=== PATIENT | male | born 1970 | race Caucasian/White ===

== ENCOUNTER 2016-06-06 18:34 | Inpatient (IN) | payer MEDICARE, OTHER ==
--- NOTE | ~2016-06-06 | PA ---
Unit #: [id number] #: [id number] Patient: JODI MILLER [id number] [facility] [address] [place] [address] [id number] I MR#: [id number] NAME: JODI MILLER ROOM: [facility] Age: 46 Sex: M Admission Date: 06/06/2016 : 1970 Date of Assessment: 06/07/2016 Attending Physician: Mejia Bartlett M.D. Admitting Physician: Mejia Bartlett M.D. Primary Care Physician: Primary Care Physician No PSYCHIATRIC ASSESSMENT IDENTIFYING INFORMATION The patient is a 46-year-old white male admitted to the [address] [place] [address] with a history of recurrence of heroin and alcohol. CHIEF COMPLAINT None given. INFORMANT Patient, reliability is fair. HISTORY OF PRESENT ILLNESS The patient is a 46-year-old white male admitted to the [address] [place] [address] with ongoing abuse of alcohol and intravenous heroin. He was last admitted to this facility in late December of last year but maintained sobriety for no significant period of time. The patient was reporting positive suicidal ideation at the time of admission with plan to overdose or using a "knife to cut himself." He states that he did attempt to overdose from heroin 2 weeks ago but did not succumb because "the stuff wasn't that good." For more complete history of present illness, please refer to previously dictated notes. PAST PSYCHIATRIC HISTORY Reviewed, no changes. PAST MEDICAL HISTORY Reviewed, no changes. MEDICATIONS 1. Gabapentin. 2. Seroquel. ALLERGIES None reported. FAMILY HISTORY Reviewed, no changes. SOCIAL HISTORY Reviewed, no changes. MENTAL STATUS EXAMINATION Examination at this time reveals the patient to be a well-developed well-nourished white male appearing stated age. He is in no apparent Unit #: [id number] #: [id number] Patient: JODI MILLER physical distress at the time of examination. He is awake, alert, and oriented in all spheres. His mood is mildly dysphoric, his affect blunted. Speech is generally well coherent. There are no gross deficits in memory or cognition noted. Intelligence is judged to be in the average range based on fund of knowledge. The patient is cooperative the interview. He is currently endorsing positive suicidal ideation. He denies homicidal ideation. He denies any psychotic symptoms. Her judgment and insight appear to be reasonably intact. ASSETS AND LIABILITIES The patient's assets are to be assessed. Liabilities: Lack of resources, ongoing substance use. DIAGNOSTIC IMPRESSION 1. Alcohol use disorder. 2. Opioid use disorder. 3. Mood disorder unspecified. TREATMENT PLAN The patient remains hospitalized for safety and stabilization. We will continue previously prescribed Seroquel. The patient has been prescribed high-dose Neurontin outside the hospital, but given concerns about potential abuse, this medication will be held, but the patient will continue on p.r.n. Neurontin as per opioid detox protocol. Suicide precautions remain in place. ESTIMATED LENGTH OF STAY 3 to 5 days. Followup will take place through the auspices of community mental health resources. The patient will be referred to the chemical dependence intensive outpatient program and will be a candidate for residential chemical dependence treatment. Dictated by... Mejia Bartlett M.D. CB/jaime TD: 06/07/2016 14:11 JOB #: [id number] PSYCHIATRIC ASSESSMENT Page 1 of 1 X Mejia Bartlett MD X PSYCHIATRIC ASSESSMENT
--- NOTE | ~2016-06-06 | PN ---
Unit #: [id number] #: [id number] Patient: JODI MILLER [id number] [facility] [address] [place] [address] [id number] MR#: [id number] NAME: JODI MILLER ROOM: [facility] [place] Age: 46 Sex: M Admission Date: 06/06/2016 : 1970 Attending Physician: Mejia Bartlett M.D. Admitting Physician: Mejia Bartlett M.D. Primary Care Physician: Primary Care Physician Holly DAVIS PROGRESS NOTES DATE 06/08/2016 DISCUSSION The patient is abed today continuing to complain of significant discomfort from substance withdrawal. He requests "something for my depression." I have explained to the patient that he is already taking an adequate dose of Seroquel to address mood instability, and that his current symptoms are probably more related to his current state of withdrawal. Dictated by... Mejia Bartlett M.D. CB/bzg TD: 06/08/2016 14:40 JOB #: [id number] SUSAN PROGRESS NOTES Page 1 of 1 X Mejia Bartlett MD PROGRESS NOTE
--- NOTE | ~2016-06-06 | DS ---
Unit #: [id number] #: [id number] Patient: JODI MILLER [id number] [facility] [address] [place] [address] [id number] I MR#: [id number] NAME: JODI MILLER ROOM: [facility] Age: 46 Sex: M Admission Date: 06/06/2016 : 1970 Discharge Date: 06/09/2016 Attending Physician: Mejia Bartlett M.D. DISCHARGE SUMMARY REASON FOR ADMISSION The patient is a 46-year-old white male, admitted to the [facility] with history of polysubstance dependence including abuse of alcohol and heroin. HOSPITAL COURSE The patient was admitted to the [address] [place] [address] unit and placed on suicide precautions. He was placed on routine detoxification protocol to cover both alcohol and opioids. His stay in the hospital was an uneventful one. He was continued on previously prescribed Seroquel 400 mg at h.s. By 06/09/2016, the patient requested discharge from the hospital. At that time, his detox was complete and he voiced no suicidal or homicidal ideation. Discharge was ordered. FINAL DIAGNOSES Opioid use disorder; alcohol use disorder; sedative-hypnotic use disorder; mood disorder, unspecified. DISPOSITION ON DISCHARGE The patient was discharged on the following medications; Seroquel 400 mg at h.s. for mood stabilization. No dietary or physical restrictions were placed on the patient at the time of discharge. FOLLOWUP Followup will take place through the auspices of community mental health resources and the [place] intensive outpatient program. PROGNOSIS Considered fair. Dictated by... Mejia Bartlett M.D. FRANCINE/ani TD: 06/10/2016 06:22 JOB #: [id number] Unit #: [id number] #: [id number] Patient: JODI MILLER DISCHARGE SUMMARY Page 1 of 1 X Mejia Bartlett MD X DISCHARGE SUMMARY
--- NOTE | ~2016-06-06 | HP ---
Unit #: [id number] #: [id number] Patient: JODI MILLER [id number] [place] [address] [id number] I MR#: [id number] NAME: JODI MILLER ROOM: [facility] Age: 46 Sex: M Admission Date: 06/06/2016 : 1970 Attending Physician: Mejia Bartlett M.D. Admitting Physician: Mejia Bartlett M.D. Primary Care Physician: Primary Care Physician No HISTORY AND PHYSICAL HISTORY OF PRESENT ILLNESS Jodi is a 46 year old admitted to [address] [place] [address] because of his continued drug use. He shoots heroin. PAST MEDICAL HISTORY 1. Long history of poly illicit substance abuse to include IV heroin. 2. History of withdrawal seizures. 3. Eczema. 4. Hyperlipidemia. 5. History of kidney stones. 6. Rheumatoid arthritis. PAST SURGICAL HISTORY 1. Bilateral hips replaced. 2. Basket retrieval of kidney stones. 3. Appendectomy. ALLERGIES No known drug allergies. SOCIAL HISTORY Smokes less than one pack per day. Drinks alcohol frequently. Has a long history of poly-illicit substance abuse to include IV heroin and benzodiazepines. FAMILY HISTORY Medically noncontributory. REVIEW OF SYSTEMS CONSTITUTIONAL: No fever or chills. HEENT: Denies any sore throat, ear pain or runny nose. CARDIOVASCULAR: Denies chest pain, irregular heart rhythm or palpitations. CHEST: Denies shortness of breath or cough. No hemoptysis. GASTROINTESTINAL: Denies nausea, vomiting, diarrhea or chronic constipation. ENDOCRINE: Denies history of increased thirst or urination. No recent significant weight loss or gain. GENITOURINARY: Denies dysuria, frequency, or hematuria. SKIN: Denies any rashes. HEMATOLOGIC: Denies history of increased bleeding or bruising. MUSCULOSKELETAL: Denies any hot, swollen joints. No generalized muscle pain. NEUROLOGIC: Denies problems with vision or speech. No frequent, severe Unit #: [id number] #: [id number] Patient: JODI MILLER headaches. No numbness, tingling or weakness in any extremities. Denies loss of bladder or bowel control. CURRENT MEDICATIONS Detox protocol PHYSICAL EXAMINATION GENERAL: Alert, well-nourished, in no apparent distress. VITAL SIGNS: Blood pressure 130/66, heart rate 80, respirations 16, temperature 98.6. WEIGHT: 161 pounds. HEIGHT: 6'2". SKIN: Warm and dry without rash or lesion. HEENT: Normocephalic. TMs not viewed. Oral and nasal passages clear. Conjunctivae clear. Pupils equal, round and reactive to light and accommodation. Extraocular movements intact. NECK: Supple without lymphadenopathy or thyromegaly. HEART: Regular rate and rhythm without murmur. LUNGS: Clear. ABDOMEN: Soft, nontender. : Not done. EXTREMITIES: No evidence of cyanosis, clubbing or edema. Moves all extremities without focal deficit. NEUROLOGICAL: Grossly within normal limits. Cranial Nerves: II: Visual oscar are intact. III, IV AND : Extraocular movements are intact. Pupils are equal, round and reactive to light. V: Facial sensation is grossly normal. VII: Facial movements and expression are normal. VIII: Auditory acuity grossly intact. IX, X: Uvula is midline. Phonation is normal. XI: Patient shrugs shoulders and turns head normally. XII: Tongue protrudes in the midline. Sensory and Motor Function: Sensory and motor sensation is grossly normal. Motor: moves all extremities well. Coordination: Gait is normal. Deep Tendon Reflexes: Intact. IMPRESSION Psychiatric admission RECOMMENDATIONS PSYCHIATRIC: Per psychiatrist. MEDICAL: I see no contraindications to participating in facility's activities. MEDICAL PROGNOSIS Good. MEDICAL CONDITION Stable. Dictated by... Anamaria Mart P.A.-C. for Adelaida Kirby M.D. Unit #: [id number] #: [id number] Patient: JODI MILLER KAY/ollie TD: 06/07/2016 21:30 JOB #: [id number] HISTORY AND PHYSICAL Page 1 of 1 X Anamaria Mart X HISTORY AND PHYSICAL
[~2016-06-06 18:34] MED LIST: ACETAMINOPHEN PO; ACETAMINOPHEN325 MG PO; ALPRAZOLAM; ALPRAZOLAM PO; AMBIEN PO; AMBIEN10 MG; AUGMENTIN PO; CIPRO PO; DEMEROL PO; DIOVAN80 M1 PO; FLEXERIL PO; HYDROCODON-ACE1 EAC7 PO; HYDROCODON-ACE1 EAC9 PO; KEPPRA500 M2 PO; KLONOPIN0.5 MG PO; KLONOPIN2 MG; LAMICTAL PO; LEVAQUIN PO; MEDROL PO; MEDROL4 MG/DOSE- PO; MOBIC15 MG PO; NEURONTIN300 MG PO; PERCOCET10 PO; PRILOSEC; PROTONIX PO; ROBITUSSIN ALL118 ML PO; ROXICODONE15 MG; SEROQUEL400 MG PO; ULTRAM PO; VISTARIL PO; WELLBUTRIN SR150 MG PO; ZANAFLEX PO; ZANAFLEX4 M1; ZOCOR; ZOFRAN ODT4 MG PO; ZOLOFT
[2016-06-07 12:51] LABS: URINE APPEARANCE CLEAR; URINE BILIRUBIN NEG (NEG); URINE BLOOD TRACE (NEG); URINE COLOR YELLOW; URINE GLUCOSE NEG (NEG); URINE KETONE NEG (NEG); URINE LEUKOCYTE ESTERASE NEG (NEG); URINE NITRATE NEG (NEG); URINE PROTEIN NEG (NEG); URINE SPECIFIC GRAVITY 1.004 (1.003-1.035); URINE UROBILINOGEN 0.2 MG/DL (NEG)
[2016-06-07 12:53] LABS: URBCS1 AUWI 0-2 /[HPF] (0-2); URINE BACTERIA AUWI NEG (NEGATIVE); URINE SQUAMOUS EPITHELIAL CELL NONE SEEN /[HPF]; UWBCS1 AUWI 0-2 (0-5)
[2016-06-07 13:24] LABS: AMPHETAMINE NEG (NEG); BARBITURATES NEG (NEG); BENZODIAZEPINES NEG (NEG); COCAINE NEG (NEG); MARIJUANA NEG (NEG); OPIATES POS (NEG); TRICYCLIC ANTIDEPRESSANTS NEG (NEG); U METHADONE NEG (NEG)
== END 2016-06-09 16:05 | disposition home or self-care (01) | DRG 897 ==
LOC: P2S 18:34
PROVIDERS: Specialist
PROC: HZ2ZZZZ Detoxification Services for Substance Abuse Treatment (ICD-10-PCS; principal; 2016-06-06)
DX: F11.23 Opioid dependence with withdrawal (principal); F13.20 Sedative, hypnotic or anxiolytic dependence, uncomplicated; F10.20 Alcohol dependence, uncomplicated; F39 Unspecified mood [affective] disorder
CPT/HCPCS: 80307; 81003

== ENCOUNTER 2016-10-15 12:20 | Emergency (ER) | payer MEDICARE, OTHER ==
[~2016-10-15] VITALS: Ht 188 cm; Wt 72.6 kg
[2016-10-15 13:59] LABS: BASOPHIL% 0.4 % (0-2.5); EOSINOPHIL% 0.3 % (0.0-7.0); HEMATOCRIT 47.8 % (38.0-50.0); HEMOGLOBIN 16.3 gm/dL (13.0-16.0); LYMPHOCYTE# 2.1 X10e3 (1.0-3.5); LYMPHOCYTE% 22.3 % (17.0-45.0); MEAN CELL VOLUME 83.2 FL (83-96); MEAN CORPUSCULAR HEMOGLOBIN 28.3 PG (28-34); MEAN PLATELET VOLUME 7.2 FL (6.5-11.5); MONOCYTE# 0.4 X10e3 (0-1.0); MONOCYTE% 4.7 % (3.0-12.0); NEUTROPHIL# 6.7 X10e3 (1.5-7.1); NEUTROPHIL% 72.3 % (40-75); PLATELET COUNT 246 X10e3 (140-420); RED BLOOD COUNT 5.75 X10e (3.90-5.60); RED CELL DISTRIBUTION WIDTH 17.7 % (11.0-15.5); WHITE BLOOD COUNT 9.3 X10e3 (4.0-10.5)
[2016-10-15 14:01] LABS: DIFF IND NO
[2016-10-15 14:17] LABS: ALBUMIN SERUM 4.9 g/dL (3.5-5.0); ALKALINE PHOSPHATASE 104 U/L (32-92); ALT (SGPT) 48 U/L (10-40); AST (SGOT) 55 U/L (10-42); BILIRUBIN, DIRECT 0.3 mg/dL (0.0-0.2); BILIRUBIN,INDIRECT 1.3 mg/dL (0.0-0.9); BILIRUBIN,TOTAL 1.6 mg/dL (0.2-2.0); BLOOD UREA NITROGEN 34 mg/dL (9-23); CALCIUM SERUM 10.2 mg/dL (8.4-10.2); CARBON DIOXIDE 23 mmol/L (22-31); CHLORIDE 105 mmol/L (100-111); CREATININE SERUM 1.1 mg/dL (0.6-1.4); GLOM FILT RATE Estimated 80.7 mL/min (>60); GLUCOSE FASTING 96 mg/dL (70-110); POTASSIUM 4.2 mmol/L (3.5-5.1); PROTEIN TOTAL SERUM 8.9 g/dL (6.0-8.3); SALICYLATE <4.0 mg/dL; SODIUM 140 mmol/L (135-145)
[2016-10-15 14:33] LABS: ACETAMINOPHEN <10 ug/mL; ALCOHOL BLOOD <5 mg/dL (0)
[2016-10-15 14:55] LABS: AMPHETAMINE NEG (NEG); BARBITURATES NEG (NEG); BENZODIAZEPINES NEG (NEG); COCAINE NEG (NEG); MARIJUANA POS (NEG); OPIATES POS (NEG); TRICYCLIC ANTIDEPRESSANTS POS (NEG); U METHADONE NEG (NEG)
== END 2016-10-15 16:46 | disposition home or self-care (01) ==
LOC: SED 12:20
PROVIDERS: Emergency Medicine
DX: F32.9 Major depressive disorder, single episode, unspecified (principal); F11.10 Opioid abuse, uncomplicated; K75.9 Inflammatory liver disease, unspecified; F17.210 Nicotine dependence, cigarettes, uncomplicated
CPT/HCPCS: 36415; 80048; 80076; 80307; 85025; 96374; 96375; 99285; G0480; J2405; J3411; J3475

== ENCOUNTER 2016-10-26 14:09 | Inpatient (IN) | payer MEDICARE, OTHER ==
[~2016-10-26] VITALS: Ht 188 cm; Wt 74.8 kg
--- NOTE | ~2016-10-26 | PN ---
Unit #: [id number] #: [id number] Patient: JODI MILLER [id number] [facility] [address] [place] [address] [id number] I MR#: [id number] NAME: JODI MILLER ROOM: [facility] Age: 46 Sex: M Admission Date: 10/26/2016 : 1970 Attending Physician: Mejia Bartlett M.D. Admitting Physician: Mejia Bartlett M.D. Primary Care Physician: Primary Care Physician Holly DAVIS PROGRESS NOTES DATE 10/28/2016 DISCUSSION The patient is abed today and is gently but firmly confronted by this physician regarding his failure to attend the therapeutic activity on the unit. The patient states he "does not know what to do." I have suggested to the patient that attendance in groups may be a way to begin working towards maintenance of sobriety to which the patient responds by rolling over and going back to sleep. Dictated by... Mejia Bartlett M.D. CB/bzg TD: 10/28/2016 12:48 JOB #: [id number] SUSAN PROGRESS NOTES Page 1 of 1 X Mejia Bartlett MD PROGRESS NOTE
--- NOTE | ~2016-10-26 | PN ---
Unit #: [id number] #: [id number] Patient: JODI MILLER [id number] [facility] [address] [place] [address] [id number] I MR#: [id number] NAME: JODI MILLER ROOM: [facility] Age: 46 Sex: M Admission Date: 10/26/2016 : 1970 Attending Physician: Mejia Bartlett M.D. Admitting Physician: Mejia Bartlett M.D. Primary Care Physician: Primary Care Physician Holly DAVIS PROGRESS NOTES DATE 10/30/2016 DISCUSSION The patient remains seclusive to room and has not attended a single therapeutic activity nor has he made any effort towards arranging post discharge disposition per his own admission. I firmly confronted the patient today regarding his failure to attend on-grounds activities and have instructed him that he will need to have some sort of disposition plan in place in the next day as I plan a.m. discharge. Dictated by... Mejia Bartlett M.D. CB/ollie TD: 10/30/2016 21:36 JOB #: [id number] SUSAN RAZO NOTES Page 1 of 1 X Mejia Bartlett MD PROGRESS NOTE
--- NOTE | ~2016-10-26 | PA ---
Unit #: [id number] #: [id number] Patient: JODI MILLER [id number] [facility] [address] [place] [address] [id number] I MR#: [id number] NAME: JODI MILLER ROOM: [facility] Age: 46 Sex: M Admission Date: 10/26/2016 : 1970 Date of Assessment: 10/27/2016 Attending Physician: Mejia Bartlett M.D. Admitting Physician: Mejia Bartlett M.D. Primary Care Physician: Primary Care Physician No PSYCHIATRIC ASSESSMENT IDENTIFYING INFORMATION The patient is a 46-year-old white male admitted to the [address] [place] [address] Unit with increasing abuse of alcohol and heroin. CHIEF COMPLAINT None given. INFORMANT(S) Chart. Patient cannot be aroused for interview. HISTORY OF PRESENT ILLNESS The patient is a 46-year-old white male admitted with increasing depressed mood and abuse of alcohol and heroin. The patient reports that he is currently homeless. He was last hospitalized at this facility in May of this year. The patient admits to intravenous heroin use as well as abuse of alcohol in unspecified quantities. His currently prescribed medications include gabapentin and Seroquel, Effexor XR, BuSpar, Depakote ER, and propranolol. For more complete history of present illness, please refer to previously dictated notes. PAST PSYCHIATRIC HISTORY Reviewed, no changes. PAST MEDICAL HISTORY Reviewed, no changes. MEDICATIONS Gabapentin, Seroquel, Effexor XR, BuSpar, Depakote, and propranolol. ALLERGIES None. FAMILY HISTORY Reviewed, no changes. SOCIAL HISTORY Reviewed, no changes. MENTAL STATUS EXAMINATION Examination at this time reveals the patient to be a disheveled soundly sleeping white male appearing her stated age. Multiple attempts to arouse the patient are unsuccessful. Unit #: [id number] #: [id number] Patient: JODI MILLER ASSETS AND LIABILITIES The patient's assets are to be assessed. Liabilities: Lack of resources. DIAGNOSTIC IMPRESSION 1. Alcohol use disorder. 2. Opioid use disorder. 3. Dysthymic disorder. TREATMENT PLAN The patient remains hospitalized for safety and stabilization. We will restart previously prescribed medications, and routine detoxification protocol to cover both alcohol and opioids has been ordered. The patient will participate in appropriate order of milieu activities. ESTIMATED LENGTH OF STAY 3 to 5 days. Dictated by... Chelsea Archibald TD: 10/27/2016 14:19 JOB #: [id number] PSYCHIATRIC ASSESSMENT Page 1 of 1 X Mejia Bartlett MD PSYCHIATRIC ASSESSMENT
--- NOTE | ~2016-10-26 | DS ---
Unit #: [id number] #: [id number] Patient: JODI MILLER [id number] [facility] [address] [place] [address] [id number] I MR#: [id number] NAME: JODI MILLER ROOM: [facility] Age: 46 Sex: M Admission Date: 10/26/2016 : 1970 Discharge Date: 11/01/2016 Attending Physician: Mejia Bartlett M.D. Primary Care Physician: Primary Care Physician No DISCHARGE SUMMARY REASON FOR ADMISSION The patient is a 46-year-old white male, admitted to the [address] [place] [address] with recurrent polysubstance abuse and suicidal ideation. HOSPITAL COURSE The patient was admitted to the [address] [place] [address] and placed on suicide precautions. He remained seclusive to room throughout much of his early hospitalization complaining of severe symptoms of opioid withdrawal. The patient's stay in the hospital was an otherwise uneventful one. By 11/01/2016, the patient made arrangements to go to "the [facility]" and as per his request, discharge was ordered. FINAL DIAGNOSES Alcohol use disorder, opioid use disorder, and dysthymic disorder. DISPOSITION ON DISCHARGE The patient is discharged on the following medications: Seroquel 600 mg bedtime for mood stabilization, Effexor XR 75 mg at bedtime for depression, BuSpar 20 mg t.i.d. for anxiety, Depakote 500 mg b.i.d. for mood stabilization, and Inderal 20 mg b.i.d. for hypertension. DIET AND ACTIVITY No dietary or physical restrictions were placed on the patient at the time of discharge. FOLLOWUP Followup will take place through the auspices of community mental health and chemical dependency treatment resources. PROGNOSIS The patient's prognosis is considered fair. Dictated by... Mejia Bartlett M.D. CB/ani TD: 11/01/2016 14:07 JOB #: [id number] Unit #: [id number] #: [id number] Patient: JODI MILLER DISCHARGE SUMMARY Page 1 of 1 X Mejia Bartlett MD X DISCHARGE SUMMARY
--- NOTE | ~2016-10-26 | HP ---
Unit #: [id number] #: [id number] Patient: JODI MILLER [id number] [place] [address] [id number] MR#: [id number] NAME: JODI MILLER ROOM: [facility] Age: 46 Sex: M Admission Date: 10/26/2016 : 1970 Attending Physician: Mejia Bartlett M.D. Admitting Physician: Mejia Bartlett M.D. Primary Care Physician: Primary Care Physician No HISTORY AND PHYSICAL HISTORY OF PRESENT ILLNESS Jodi is a 46 year old admitted to [address] [place] [address] because of his illicit drug use. He has had other admissions to this facility for treatment of the same. PAST MEDICAL HISTORY 1. Long history of illicit substance abuse to include IV heroin. 2. History of alcohol abuse. 3. History of withdrawal seizures. 4. Eczema. 5. Hyperlipidemia. 6. History of kidney stones. 7. Rheumatoid arthritis. PAST SURGICAL HISTORY 1. Bilateral hips replaced. 2. Basket retrieval of kidney stones. 3. Appendectomy. ALLERGIES No known drug allergies. SOCIAL HISTORY Smokes 1 pack per day. Drinks alcohol frequently. Has a long history of illicit substance abuse to include IV heroin and abusing benzodiazepines. FAMILY HISTORY Medically noncontributory. REVIEW OF SYSTEMS CONSTITUTIONAL: No fever or chills. HEENT: Denies any sore throat, ear pain or runny nose. CARDIOVASCULAR: Denies chest pain, irregular heart rhythm or palpitations. CHEST: Denies shortness of breath or cough. No hemoptysis. GASTROINTESTINAL: Denies nausea, vomiting, diarrhea or chronic constipation. ENDOCRINE: Denies history of increased thirst or urination. No recent significant weight loss or gain. GENITOURINARY: Denies dysuria, frequency, or hematuria. SKIN: Denies any rashes. HEMATOLOGIC: Denies history of increased bleeding or bruising. MUSCULOSKELETAL: Denies any hot, swollen joints. No generalized muscle pain. Unit #: [id number] #: [id number] Patient: JODI MILLER NEUROLOGIC: Denies problems with vision or speech. No frequent, severe headaches. No numbness, tingling or weakness in any extremities. Denies loss of bladder or bowel control. CURRENT MEDICATIONS 1. Detox protocol. 2. Effexor XR 75 mg q.h.s. 3. Seroquel 600 mg q.h.s. 4. Inderal 20 mg b.i.d. 5. Depakote 500 mg b.i.d. 6. BuSpar 20 mg t.i.d. PHYSICAL EXAMINATION GENERAL: Alert, well-nourished, in no apparent distress. VITAL SIGNS: Blood pressure 130/66, heart rate 80, respirations 16, temperature 98.6. WEIGHT: 165. HEIGHT: 6 feet 2 inches. SKIN: Warm and dry without rash or lesion. HEENT: Normocephalic. TMs not viewed. Oral and nasal passages clear. Conjunctivae clear. PERRLA. EOMs intact. NECK: Supple without lymphadenopathy or thyromegaly. HEART: Regular rate and rhythm without murmur. LUNGS: Clear. ABDOMEN: Soft, nontender. : Not done. EXTREMITIES: No evidence of cyanosis, clubbing or edema. Moves all without focal deficit. NEUROLOGICAL: Grossly within normal limits. Cranial Nerves: II: Visual oscar are intact. III, IV AND : Extraocular movements are intact. Pupils are equal, round and reactive to light. V: Facial sensation is grossly normal. VII: Facial movements and expression are normal. VIII: Auditory acuity grossly intact. IX, X: Uvula is midline. Phonation is normal. XI: Patient shrugs shoulders and turns head normally. XII: Tongue protrudes in the midline. Sensory and Motor Function: Sensory and motor sensation is grossly normal. Motor: moves all extremities well. Coordination: Gait is normal. Deep Tendon Reflexes: Intact. IMPRESSION Psychiatric admission. RECOMMENDATIONS PSYCHIATRIC: Per psychiatrist. MEDICAL: See no contraindication to participate in facility's activities. MEDICAL PROGNOSIS Good. MEDICAL CONDITION Stable. Dictated by... Anamaria Mart P.A.-C. for Unit #: [id number] #: [id number] Patient: JODI MILLER Chelsea Morales/ilana TD: 10/27/2016 17:21 JOB #: [id number] HISTORY AND PHYSICAL Page 1 of 1 X Anamaria Mart HISTORY AND PHYSICAL
--- NOTE | ~2016-10-26 | PN ---
Unit #: [id number] #: [id number] Patient: JODI MILLER [id number] [facility] [address] [place] [address] [id number] I MR#: [id number] NAME: JODI MILLER ROOM: [facility] Age: 46 Sex: M Admission Date: 10/26/2016 : 1970 Attending Physician: Mejia Bartlett M.D. Admitting Physician: Mejia Bartlett M.D. Primary Care Physician: Primary Care Physician Holly DAVIS PROGRESS NOTES DATE 10/29/2016 DISCUSSION The patient remains abed with little if any participation within the therapeutic milieu. We continue current detoxification protocol and expect discharge within the next day or so. Dictated by... Mejia Bartlett M.D. CB/ollie TD: 10/29/2016 21:13 JOB #: [id number] SUSAN PROGRESS NOTES Page 1 of 1 X Mejia Bartlett MD X PROGRESS NOTE
--- NOTE | ~2016-10-26 | PN ---
Unit #: [id number] #: [id number] Patient: JODI MILLER [id number] [facility] [address] [place] [address] [id number] I MR#: [id number] NAME: JODI MILLER ROOM: [facility] Age: 46 Sex: M Admission Date: 10/26/2016 : 1970 Attending Physician: Mejia Bartlett M.D. Admitting Physician: Mejia Bartlett M.D. Primary Care Physician: Primary Care Physician Holly DAVIS PROGRESS NOTES DATE 10/31/2016 DISCUSSION The patient is a bit brighter today and is active within the therapeutic milieu. He states that he has made arrangements [facility]. He requests reinitiation of Geodon which he has taken in the past for mood stabilization. We will go ahead and start Geodon this evening and expect a.m. discharge. Dictated by... Mejia Bartlett M.D. CB/bzg TD: 10/31/2016 13:57 JOB #: [id number] [facility] PROGRESS NOTES Page 1 of 1 X Mejia Bartlett MD PROGRESS NOTE
[2016-10-27 09:34] LABS: URINE APPEARANCE CLEAR; URINE BILIRUBIN NEG (NEG); URINE BLOOD NEG (NEG); URINE COLOR YELLOW; URINE GLUCOSE NEG (NEG); URINE KETONE NEG (NEG); URINE LEUKOCYTE ESTERASE NEG (NEG); URINE NITRATE NEG (NEG); URINE PH 6.5 (5-8); URINE PROTEIN NEG (NEG)
[2016-10-27 10:22] LABS: AMPHETAMINE NEG (NEG); BARBITURATES NEG (NEG); BENZODIAZEPINES NEG (NEG); COCAINE NEG (NEG); MARIJUANA NEG (NEG); OPIATES POS (NEG); TRICYCLIC ANTIDEPRESSANTS NEG (NEG); U METHADONE NEG (NEG)
== END 2016-11-01 14:21 | DRG 897 ==
LOC: P2S 17:04
PROVIDERS: Specialist
PROC: HZ2ZZZZ Detoxification Services for Substance Abuse Treatment (ICD-10-PCS; principal; 2016-10-27)
DX: F10.10 Alcohol abuse, uncomplicated (principal); F11.10 Opioid abuse, uncomplicated; E78.5 Hyperlipidemia, unspecified; F34.1 Dysthymic disorder; M06.9 Rheumatoid arthritis, unspecified; Z87.442 Personal history of urinary calculi; Z96.643 Presence of artificial hip joint, bilateral; F17.210 Nicotine dependence, cigarettes, uncomplicated
CPT/HCPCS: 80307; 81003